=== PATIENT | male | born 1935 | race African-American/Black ===

== ENCOUNTER 2020-10-11 11:07 | Inpatient (IN) ==
[2020-10-11 12:33] LABS: Albumin 3.4 G/DL (3.4-5.0); Bilirubin,Total 1.3 MG/DL (0.2-1.0); Calcium 9.6 MG/DL (8.5-10.1); Osmolality,Calculated 323.3 MOS/KG (273-304); Potassium 3.9 MMOL/L (3.5-5.1); Total Protein 7.8 G/DL (6.4-8.2)
[2020-10-11 12:38] LABS: Basophils # 0.1 10*3/uL (0.0-0.2); Basophils % 0.8 % (0.0-0.8); Eosinophils % 0.3 % (0.00-10.9); Hematocrit 54.2 VOL% (42.0-52.0); Hemoglobin 17.4 GM/DL (14.0-18.0); Immature Granulocytes % 0.5 %; Immature Granulocytes Absolute 0.05 #; Lymphocytes # 1.2 10*3/uL (1.4-4.0); Lymphocytes % 13.1 % (21.2-54.2); Mean Corpuscular HGB Conc 32.1 GM/DL (32-36); Mean Corpuscular Volume 102.7 FL (87-102); Monocytes % 7.4 % (1.7-12.7); Neutrophils % 77.9 % (38.7-73.9); Platelet Count 107 T/CUMM (130-400); Red Blood Count 5.28 MC/CUMM (3.8-5.5); Red Cell Distribution Width 15.1 % (9.3-17.3); White Blood Count 9.3 T/CUMM (4-12)
[2020-10-11 13:23] LABS: INR 1.6; PT Patient Result 17.1 SECS (10.5-12.0)
[2020-10-11 14:32] LABS: Bilirubin,Urine Negative (Negative); Blood, Urine Negative (Negative); Glucose,Urine (UA) Negative (Negative); Hyaline Casts,Urine 1 /LPF (0-3); Ketones,Urine Negative (Negative); Mucus,Urine Occasional /LPF (Occasional); Nitrite,Urine Negative (Negative); Protein,Urine Negative; RBC,Urine <1 /HPF (0-4); Urine Appearance CLEAR (Clear); Urine Color Amber (Yellow); Urine Specific Gravity 1.023 (1.001-1.035)
[2020-10-11] MEDS ORDERED: AMIODARONE INJ 150 MG in DEXTROSE 5% 100 ML IV ONE (14:37)
[2020-10-11] MEDS ORDERED: AMIODARONE 150 MG/3 ML VIAL ONE (14:46)
[2020-10-11] MEDS ORDERED: GLUCAGON 1 MG VIAL IM PRN (14:47)
[2020-10-11] MEDS ORDERED: ACETAMINOPHEN 325 MG TABLET PO PRN (14:47)
[2020-10-11] MEDS ORDERED: ONDANSETRON 4 MG/2 ML VIAL IV PRN (14:47)
[2020-10-11] MEDS ORDERED: DEXTROSE 50% 25 GM/50 ML VIAL IV PRN (14:47)
[2020-10-11] MEDS ORDERED: DOCUSATE SODIUM 100 MG CAPSULE PO PRN (14:47)
[2020-10-11] MEDS ORDERED: ENOXAPARIN 40 MG/0.4 ML SYRINGE SUBCUT SCH (15:00)
[2020-10-11 15:22] LABS: Thyroid Stimulating Hormone 2.14 uIU/ml (0.358-3.74)
[2020-10-11] MEDS ORDERED: ENOXAPARIN 80 MG/0.8 ML SYRINGE SUBCUT SCH (15:30)
[2020-10-11] MEDS: SODIUM CHLORIDE 0.9% 1,000 ML IV SCH (22:05)
[2020-10-11] MEDS: QUEtiapine 25 MG TABLET PO SCH (22:07)
[2020-10-11] MEDS: METOPROLOL TARTRATE 25 MG TABLET PO SCH (22:07)
[2020-10-11] MEDS: MEMANTINE 10 MG TABLET PO SCH (22:07)
[2020-10-11] MEDS: SERTRALINE 50 MG TABLET PO SCH (22:08)
[2020-10-12] MEDS: ENOXAPARIN 80 MG/0.8 ML SYRINGE SUBCUT SCH ×3 (00:25→18:26)
[2020-10-12] MEDS ORDERED: DILTIAZEM 50 MG/10 ML VIAL IV ONE (01:11)
[2020-10-12 05:22] LABS: Basophils # 0.1 10*3/uL (0.0-0.2); Basophils % 0.4 % (0.0-0.8); Eosinophils % 0.2 % (0.00-10.9); Hematocrit 52.5 VOL% (42.0-52.0); Immature Granulocytes % 0.4 %; Immature Granulocytes Absolute 0.05 #; Mean Corpuscular HGB Conc 32.4 GM/DL (32-36); Mean Corpuscular Volume 102.5 FL (87-102); Mean Platelet Volume 12.1 FL (9.6-12.0); Monocytes % 8.5 % (1.7-12.7); NRBC # 0.02 10*3/uL; Neutrophils % 81.5 % (38.7-73.9); Red Blood Count 5.12 MC/CUMM (3.8-5.5); Red Cell Distribution Width 15.3 % (9.3-17.3); White Blood Count 11.2 T/CUMM (4-12)
[2020-10-12 05:25] LABS: Platelet Count 81 T/CUMM (130-400)
[2020-10-12 05:38] LABS: Albumin 2.9 G/DL (3.4-5.0); Bilirubin,Total 1.3 MG/DL (0.2-1.0); Calcium 9.5 MG/DL (8.5-10.1); Total Protein 7.3 G/DL (6.4-8.2)
[2020-10-12 05:44] LABS: Platelet Estimate Decreased
[2020-10-12] MEDS: SODIUM CHLORIDE 0.9% 1,000 ML IV SCH (08:30)
[2020-10-12] MEDS: MEMANTINE 10 MG TABLET PO SCH ×2 (09:52→22:04)
[2020-10-12] MEDS: METOPROLOL TARTRATE 25 MG TABLET PO SCH ×2 (09:52→22:04)
[2020-10-12] MEDS: QUEtiapine 25 MG TABLET PO SCH ×2 (09:53→22:04)
[2020-10-12] MEDS: EXELON TRANSDERM SCH (11:28)
[2020-10-12] MEDS: DEXTROSE 5% 1,000 ML IV SCH ×2 (11:40→22:02)
[2020-10-12] MEDS: SERTRALINE 50 MG TABLET PO SCH (22:04)
[2020-10-13] MEDS ORDERED: METOPROLOL TARTRATE 5 MG/5 ML VIAL IV ONE (00:59)
[2020-10-13] MEDS: ENOXAPARIN 80 MG/0.8 ML SYRINGE SUBCUT SCH ×2 (04:10→17:09)
[2020-10-13 04:51] LABS: Basophils # 0.1 10*3/uL (0.0-0.2); Basophils % 0.6 % (0.0-0.8); Eosinophils # 0.1 10*3/uL (0.0-0.87); Eosinophils % 0.7 % (0.00-10.9); Hematocrit 51.6 VOL% (42.0-52.0); Hemoglobin 16.3 GM/DL (14.0-18.0); Immature Granulocytes % 0.7 %; Immature Granulocytes Absolute 0.07 #; Lymphocytes % 9.8 % (21.2-54.2); Mean Corpuscular HGB Conc 31.6 GM/DL (32-36); Mean Corpuscular Volume 103.8 FL (87-102); Mean Platelet Volume 12.5 FL (9.6-12.0); NRBC # 0.03 10*3/uL; Neutrophils % 82.2 % (38.7-73.9); Platelet Count 113 T/CUMM (130-400); Red Blood Count 4.97 MC/CUMM (3.8-5.5); Red Cell Distribution Width 15.1 % (9.3-17.3); White Blood Count 10.3 T/CUMM (4-12)
[2020-10-13 05:11] LABS: Osmolality,Calculated 321.4 MOS/KG (273-304); Potassium 3.9 MMOL/L (3.5-5.1)
[2020-10-13] MEDS ORDERED: AMIODARONE INJ 150 MG in DEXTROSE 5% 100 ML IV ONE (05:30)
[2020-10-13] MEDS ORDERED: AMIODARONE INJ 450 MG in DEXTROSE 5% 241 ML IV SCH (05:40)
[2020-10-13] MEDS: DEXTROSE 5% 1,000 ML IV SCH ×2 (08:33→19:29)
[2020-10-13] MEDS: MEMANTINE 10 MG TABLET PO SCH (08:34)
[2020-10-13] MEDS: METOPROLOL TARTRATE 25 MG TABLET PO SCH (08:34)
[2020-10-13] MEDS: EXELON TRANSDERM SCH (08:35)
[2020-10-13] MEDS: QUEtiapine 25 MG TABLET PO SCH (08:35)
[2020-10-13 12:49] LABS: INR 1.9; PT Patient Result 20.3 SECS (10.5-12.0)
[2020-10-13] MEDS: AMIODARONE INJ 450 MG in DEXTROSE 5% 241 ML IV SCH (13:36)
[2020-10-14] MEDS: AMIODARONE INJ 450 MG in DEXTROSE 5% 241 ML IV SCH (03:59)
[2020-10-14] MEDS: ENOXAPARIN 80 MG/0.8 ML SYRINGE SUBCUT SCH (04:20)
[2020-10-14] MEDS: DEXTROSE 5% 1,000 ML IV SCH ×2 (04:20→15:03)
[2020-10-14 06:26] LABS: Basophils # 0.1 10*3/uL (0.0-0.2); Basophils % 0.7 % (0.0-0.8); Eosinophils # 0.1 10*3/uL (0.0-0.87); Eosinophils % 1.1 % (0.00-10.9); Hematocrit 49.6 VOL% (42.0-52.0); Hemoglobin 15.9 GM/DL (14.0-18.0); Immature Granulocytes % 0.8 %; Immature Granulocytes Absolute 0.08 #; Lymphocytes # 1.8 10*3/uL (1.4-4.0); Lymphocytes % 18.2 % (21.2-54.2); Mean Corpuscular HGB Conc 32.1 GM/DL (32-36); Mean Corpuscular Volume 102.1 FL (87-102); Monocytes % 7.5 % (1.7-12.7); Neutrophils % 71.7 % (38.7-73.9); Platelet Count 120 T/CUMM (130-400); Red Blood Count 4.86 MC/CUMM (3.8-5.5); White Blood Count 9.9 T/CUMM (4-12)
[2020-10-14 06:29] LABS: INR 1.8; PT Patient Result 19.3 SECS (10.5-12.0)
[2020-10-14] MEDS: DILTIAZEM INJ 100 MG in SODIUM CHLORIDE 0.9% 100 ML IV SCH (06:40)
[2020-10-14 06:44] LABS: Calcium 8.6 MG/DL (8.5-10.1); Osmolality,Calculated 305.3 MOS/KG (273-304); Potassium 3.6 MMOL/L (3.5-5.1)
[2020-10-14] MEDS: EXELON TRANSDERM SCH (09:01)
[2020-10-15] MEDS: DILTIAZEM INJ 100 MG in SODIUM CHLORIDE 0.9% 100 ML IV SCH ×2 (00:05→02:22)
[2020-10-15] MEDS: DEXTROSE 5% 1,000 ML IV SCH ×2 (01:11→11:11)
[2020-10-15] MEDS: EXELON TRANSDERM SCH ×2 (09:19→11:51)
[2020-10-15] MEDS: MORPHINE 4 MG/1 ML VIAL IV PRN ×2 (14:41→17:40)
[2020-10-15] MEDS: LORazepam 2 MG/1 ML VIAL IV PRN (16:03)
[2020-10-16] MEDS: MORPHINE 4 MG/1 ML VIAL IV PRN ×2 (04:39→16:09)
[2020-10-16 08:07] VITALS: BP 97/57
[2020-10-16] MEDS: EXELON TRANSDERM SCH (08:22)
[2020-10-16] MEDS: LORazepam 2 MG/1 ML VIAL IV PRN (13:14)
== END 2020-10-16 17:13 | disposition hospice, inpatient (51) | DRG 682 ==
LOC: EDUNIT# → EDBD → N.ED 11:07 → SUATTDRO 15:55 → N.EDINP 15:55 → N.TELEN 16:13 → N.4E 10-15 12:27
PROVIDERS: ADMIT Student in an Organized Health Care Education/Training Program; ATTEND Internal Medicine

== ENCOUNTER 2020-10-16 17:22 | Inpatient (IN) ==
[2020-10-16] MEDS ORDERED: MORPHINE 4 MG/1 ML VIAL IV PRN (17:37)
[2020-10-16] MEDS: LORazepam 2 MG/1 ML VIAL IV SCH ×2 (17:55→20:54)
[2020-10-16] MEDS: MORPHINE 4 MG/1 ML VIAL IV SCH (17:55)
[2020-10-17] MEDS: LORazepam 2 MG/1 ML VIAL IV SCH ×14 (00:01→23:49)
[2020-10-17] MEDS: MORPHINE 4 MG/1 ML VIAL IV SCH ×6 (00:02→19:05)
[2020-10-17] MEDS: RIVASTIGMINE 9.5 MG/24 HR PATCH TRANSDERM SCH (09:45)
[2020-10-17] MEDS: MORPHINE 2 MG/1 ML SYRINGE IV PRN (18:44)
[2020-10-18] MEDS: LORazepam 2 MG/1 ML VIAL IV SCH ×11 (02:07→22:21)
[2020-10-18] MEDS: RIVASTIGMINE 9.5 MG/24 HR PATCH TRANSDERM SCH (10:21)
[2020-10-18] MEDS: MORPHINE 2 MG/1 ML SYRINGE IV PRN (19:34)
[2020-10-18] MEDS: MORPHINE 4 MG/1 ML VIAL IV PRN (20:56)
[2020-10-19] MEDS: LORazepam 2 MG/1 ML VIAL IV SCH ×12 (00:50→22:17)
[2020-10-19] MEDS: MORPHINE 4 MG/1 ML VIAL IV PRN ×2 (01:08→04:38)
[2020-10-19] MEDS: RIVASTIGMINE 9.5 MG/24 HR PATCH TRANSDERM SCH (08:42)
[2020-10-19] MEDS ORDERED: ACETAMINOPHEN 650 MG SUPP RECTAL PRN (12:38)
[2020-10-19 23:56] VITALS: BP 52/39
[2020-10-20] MEDS: LORazepam 2 MG/1 ML VIAL IV SCH ×2 (00:23→02:12)
== END 2020-10-20 04:21 | disposition expired | DRG 951 ==
LOC: N.4E 17:22
PROVIDERS: ADMIT Internal Medicine; ATTEND Internal Medicine